=== PATIENT | female | born 1965 | race Caucasian/White ===

== ENCOUNTER 2016-12-25 13:35 | Observation (INO) | payer BC, OTHER ==
[~2016-12-25] VITALS: Ht 154.9 cm; Wt 77.6 kg
[~2016-12-25 13:35] MED LIST: CALC-23 PO; FISH OI1 PO; MULTTAB58 PO; SELE1TAB PO; VITEX PO; [UNRECOGNIZED DRUG - CODE] PO
[2016-12-25] MEDS ORDERED: SODIUM CHLORIDE 0.9% 1000ML 1,000 ML IV STA (14:09)
[2016-12-25] MEDS ORDERED: NITROGLYCERIN 0.4 MG SL PER TAB CHARGE SL PRN ×2 (14:15→16:00)
[2016-12-25 14:18] LABS: BASO % 1.4 %; BASO ABS # 0.08 K/uL (0-0.2); COMPLETE YES; EOS % 1.4 %; HEMATOCRIT 37.8 % (37-47); IG% 0.4 %; LYMPH % 38.8 %; LYMPH ABS # 2.21 K/uL (1.2-3.4); MEAN CELL VOLUME 88.5 fL (80-100); MEAN CORPUSCULAR HEMOGLOBIN 30.9 pg (25-34); MEAN CORPUSCULAR HGB CONC 34.9 g/dl (32-36); MEAN PLATELET VOLUME 10.3 fL (7.4-10.4); MONO % 8.4 %; NEUT % 49.6 %; PLATELET COUNT 262 K/uL (130-400); RED BLOOD COUNT 4.27 M/uL (4.2-5.4); WHITE BLOOD COUNT 5.69 K/uL (4.8-10.8)
[2016-12-25 14:27] LABS: ALT/SGPT 63 U/L (12-78); AST/SGOT 28 U/L (15-37); BLOOD UREA NITROGEN 12 mg/dl (7-18); BUN/CREATININE RATIO 14.5 (10-20); CALCIUM 9.2 mg/dl (8.5-10.1); CARBON DIOXIDE 27 mmol/L (21-32); CHLORIDE 104 mmol/L (98-107); CREATININE 0.84 mg/dl (0.60-1.20); GLUCOSE 102 mg/dl (70-99); POTASSIUM 3.7 mmol/L (3.5-5.1); SODIUM 142 mmol/L (136-145)
[2016-12-25 14:32] LABS: ALKALINE PHOSPHATASE 61 U/L (45-117)
[2016-12-25] MEDS ORDERED: VITA1TAB4 PO (14:34)
--- NOTE | 2016-12-25 14:48 | DIAGNOSTIC IMAGING REPORT ---
SINGLE VIEW CHEST CLINICAL HISTORY: Atypical chest pain. FINDINGS: An AP, portable, upright chest radiograph is obtained. No prior studies are available for comparison at the time of dictation. The examination is degraded by portable technique and patient rotation. The cardiomediastinal silhouette is unremarkable. The lungs and pleural spaces are clear. No pneumothorax is seen. The bony thorax is grossly intact. Degenerative change is noted throughout the thoracic spine. IMPRESSION: No active disease in the chest. Electronically signed by: Jesus Rush M.D. 12/25/2016 2:46 PM Dictated Date/Time: 12/25/2016 2:46 PM
[2016-12-25] MEDS ORDERED: ASPIRIN 324 MG CHEW PO STA (15:46)
[2016-12-25] MEDS ORDERED: MoRPHine SULFATE 4 MG/ML 1 ML CARP\\VIAL IV PRN (16:00)
[2016-12-25] MEDS ORDERED: MAGNESIUM HYDROXIDE SUSP 30 ML UDC PO PRN (16:00)
[2016-12-25] MEDS ORDERED: ALUMINUM/MAGNESIUM/SIMETH (MAALOX MAX) 30 ML UDC PO PRN (16:00)
[2016-12-25] MEDS ORDERED: MoRPHine SULFATE 2 MG/ML CARP IV PRN (16:00)
[2016-12-25] MEDS ORDERED: LORAZEPAM 0.5 MG TAB PO PRN (16:00)
[2016-12-25] MEDS ORDERED: ONDANSETRON INJ 2 MG/ML 2 ML VIAL IV PRN (16:00)
[2016-12-25] MEDS ORDERED: LORAZEPAM 2 MG/ML 1 ML VIAL IV PRN ×2 (16:00)
[2016-12-25] MEDS ORDERED: OXYCODONE HCL IR 5 MG TAB (IMMEDIATE RELEASE) PO PRN (16:00)
[2016-12-25 16:03] VITALS: O2SAT 98; Ht 154.9 cm; Wt 77.6 kg
[2016-12-25] MEDS ORDERED: IV FLUIDS COMPLETED PRN (17:00)
[2016-12-25 17:42] VITALS: BP 132/83; PULSE 68; TEMP 36.7; O2SAT 96
[2016-12-25] MEDS ORDERED: LORAZEPAM INJ 1 MG in SYRINGE 0.5 ML IV PRN (18:00)
[2016-12-25] MEDS ORDERED: LORAZEPAM INJ 0.5 MG in SYRINGE 0.75 ML IV PRN (18:00)
--- NOTE | 2016-12-25 18:20 | HISTORY & PHYSICAL EXAMINATION ---
DATE OF ADMISSION: 12/25/2016 CHIEF COMPLAINT: Chest pain. ADMITTING DIAGNOSIS: Chest pain. HISTORY OF PRESENT ILLNESS: Ms. Falcon is a 51-year-old female who does not typically seek medical care. The patient states that she in the last few years have occasionally experienced what she describes as a flop in her chest. This is not typically associated with any activity or even at rest. Overnight, the patient said she felt this symptom more specifically; it was concerning to her. She says at that time she can feel her heart beat and she felt that her heart beat had paused or stopped significantly at 2 occasions. Subsequent to those symptoms, she then developed chest pressure which had a sharp component centrally below her sternum. She said when the chest pressure was at its worst she experienced shortness of breath, mild nausea and some dizziness. The patient when she presented said her discomfort was at a 7 in the Emergency Room and has receded to approximately 3. This was after aspirin and nitroglycerin. The patient is currently resting comfortably. She appears to be in no acute distress to me. She is in sinus rhythm on the heart monitor and despite having 3/10 discomfort appears to be completely without remark. PAST MEDICAL AND SURGICAL HISTORY: Fairly unremarkable. She had a D\T\C with evacuation in her youth. 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 MEDICATIONS: Multivite once a day, fish oil once a day, and vitamin E daily. CARDIAC RISK FACTORS: Her father had heart disease in his 80s. She is known to have elevated cholesterol. She currently is in a perimenopausal period. She has never smoked; however. She is morbidly obese with a BMI of 33. REVIEW OF SYSTEMS: Ten systems were reviewed and are negative with the exception of variable menstrual periods. The patient states that occasionally she wakes up at night feeling flushed or warm. At that point in time, her heart rate may be slightly faster for her. PHYSICAL EXAMINATION: GENERAL: This is a pleasant female. She looks some slightly older than her stated age. VITAL SIGNS: Her temperature is 36.8, her heart rate 73, respiration rate 16, BP 115/73, O2 sat 98. HEENT: PERRL, EOMI. I did not do a funduscopic exam to see these telangiectasias. Her oropharynx is clear. NECK: Without lymphadenopathy. Trachea is midline. HEART: Regular. There are no murmurs, clicks, rubs or gallops. LUNGS: Clear without wheezes or crackles. Good air movement. She has no spinal tenderness or CV angle tenderness. ABDOMEN: Obese, normoactive bowel sounds, soft, nontender, no bruits. I cannot assess for organomegaly due to her body habitus. EXTREMITIES: Without cyanosis, clubbing or edema. NEUROLOGICALLY: She is awake, alert and appropriate. Cranial nerves II-XII are intact. Equal symmetrical strength and sensation. SKIN: Without lesions, growths, bruises or bleeding. LABORATORY DATA: Never smoked, never drank. She is currently . Her and her daughter are with her. FAMILY HISTORY: Positive for diabetes and hypertension in her mother and as mentioned, heart disease and stents in her father. LABORATORY DATA: She has completely normal labs. A CBC of 5, H\T\H 13 and 37, platelet count of 262, BUN and creatinine is 12 and 0.8. Her cardiac enzymes are unremarkable. The only thing abnormal is lipase, it is 612. IMAGING DATA: Chest x-ray is without remark. Her EKG shows normal sinus rhythm without any acute ST or T-wave changes. There is some inverted T waves in V1 and V2, but these are congruent with the vector of force being down those leads. ASSESSMENT: A 51-year-old female with palpitations and chest pain. Initial workup unremarkable at the present time. PLAN: The patient will be observed in the telemetry unit. She will be given aspirin 325 now and once a day. She will have p.r.n. nitrates for pain. Additional pain control could be with morphine. We will pursue an EKG in the morning. If her enzymes and EKG are unremarkable, we may pursue a treadmill echocardiographic stress testing which she is in agreement with. In case her palpitations are something regarding arrhythmia, this will be monitored overnight. The Emergency Room did not check a TSH. This will be added, although she has not complaint of any clinical signs or symptoms of hyperthyroidism. Enoxaparin will be used for DVT prevention. The patient is a full code.
[2016-12-25 18:46] LABS: PROTHROMBIN TIME (PATIENT) 10.5 SECONDS (9.0-12.0)
[2016-12-25 20:00] VITALS: BP 133/82; PULSE 65; TEMP 36.5; O2SAT 97
[2016-12-25] MEDS ORDERED: ENOXAPARIN 40 MG/0.4 ML SYR SC SCH (21:00)
--- NOTE | 2016-12-25 21:05 | EMERGENCY ROOM VISIT NOTE ---
ED Visit Note First contact with patient: 13:45 Chief Complaint: Chest pain. History of Present Illness: Ms. Falcon is a 51 year-old white female complaining of chest tightness. Historically patient reports she has no history of coronary artery disease but does report she has a history of dyslipidemia, obesity, satiety. She does report her father had a history of coronary artery disease that required triple stent placement when he was 80 years old, but there is no other family monitor with heart disease. Patient reports approximately 6.5 hours ago she was lying in bed on her stomach. She reports she had a 3-4 second interval of feeling like her heart was racing and had 2 episodes of sensations like her heart had stopped for a second. She rolled over onto her back and reports an acute onset of severe chest pain. At that time she described her pain as if something was sitting on her chest. She rates this discomfort 7/10. There was no radiation of the pain. She did feel slightly short of breath at the time. She did treat her symptoms with 4 baby aspirin and reports mild right relief of this discomfort. Since that time she reports her pain has been constant but has waxed and waned in intensity but has never resolved. Currently she describes her pain as a tightness sensation across the sternum. She rates her discomfort 3/10. Her pain is still nonradiating. She has not identified any additional aggravating or alleviating factors related to the pain. She has not taken any additional medication for pain prior to arrival at the hospital. When I questioned her about shortness of breath she reports she does not know if she feels more or less short of breath. Patient denies fevers, chills, sweats, skin eruptions, skin color changes, upper respiratory tract symptoms, radiation of her discomfort into the back, next and arms, wheezing, cough shortness of breath, orthopnea, dependent edema, previous clots, claudication, cramping, recent surgery/inactivity/extended travel, abdominal pain, nausea, vomiting, diarrhea, constipation, rectal bleeding, black/tarry stools, urinary symptoms, back/flank pain. Review of Systems: As noted above in history of present illness. All body systems were reviewed and found to be negative as noted above. Past Medical History: As previously noted, heavy vaginal bleeding, telangiectasias of the eyes. Current Medications: Multivitamins. Allergies to Medications: Acetaminophen, propoxyphene, thyroid hormones. Social History: Patient feels safe in her home environment; she denies tobacco and alcohol use. Physical Examination: Vital Signs: Date Time Temp Pulse Resp B/P Pulse Ox O2 Delivery O2 Flow Rate FiO2 12/25/16 15:36 82 12 98 12/25/16 15:31 115/63 12/25/16 15:30 73 15 98 12/25/16 15:01 100/67 12/25/16 15:00 74 10 98 12/25/16 14:22 78 15 155/88 98 Room Air 12/25/16 13:47 75 12/25/16 13:41 36.8 78 16 171/96 100 Room Air GENERAL: 51-year-old female in mild to moderate distress due to pain, nontoxic- appearing, afebrile and hemodynamically stable. NEUROLOGICAL: Awake, alert and oriented to person, place and time. Answering questions appropriately and following commands. Normal gait. Good hand eye coordination. SKIN: Warm, dry and pink. No soft tissue eruptions or trauma noted. HEENT: Atraumatic and normocephalic. PERRLA. Sclera white and conjunctiva pink. Oral cavity moist and pink. Pharynx is nonerythematous or edematous. Speech normal. No lymphadenopathy. Trachea midline. No jugular venous distention. No carotid bruits. BACK: No tenderness over the bony spine. No CVA tenderness. THORAX: Lungs sounds are clear to auscultation and equal bilaterally with symmetrical chest wall. No wheezing, rales or rhonchi. No crepitus, tenderness , subcutaneous air or deformities noted. HEART: Regular rate and rhythm. No gallops, rubs or murmurs are appreciated. No lifts, heaves or thrills. PMI is not displaced. ABDOMEN: Flat, soft and nontender. Positive bowel sounds in all quadrants. No guarding, rigidity or organomegaly. EXTREMITIES: Moves all extremities well on command and with purpose. All distal neurovascular statuses are intact and equal bilaterally. Trace dependent edema. No calf tenderness/cords. ED Course: Patient is assessed as noted above. Laboratory Testing: Test 12/25/16 13:50 12/25/16 14:16 Range/Units White Blood Count 5.69 4.8-10.8 K/uL Red Blood Count 4.27 4.2-5.4 M/uL Hemoglobin 13.2 12.0-16.0 g/dL Hematocrit 37.8 37-47 % Mean Corpuscular Volume 88.5 80-100 fL Mean Corpuscular Hemoglobin 30.9 25-34 pg Mean Corpuscular Hemoglobin Concent 34.9 32-36 g/dl Platelet Count 262 130-400 K/uL Mean Platelet Volume 10.3 7.4-10.4 fL Neutrophils (%) (Auto) 49.6 % Lymphocytes (%) (Auto) 38.8 % Monocytes (%) (Auto) 8.4 % Eosinophils (%) (Auto) 1.4 % Basophils (%) (Auto) 1.4 % Neutrophils # (Auto) 2.82 1.4-6.5 K/uL Lymphocytes # (Auto) 2.21 1.2-3.4 K/uL Monocytes # (Auto) 0.48 0.11-0.59 K/uL Eosinophils # (Auto) 0.08 0-0.5 K/uL Basophils # (Auto) 0.08 0-0.2 K/uL RDW Standard Deviation 42.4 36.4-46.3 fL RDW Coefficient of Variation 13.1 11.5-14.5 % Immature Granulocyte % (Auto) 0.4 % Immature Granulocyte # (Auto) 0.02 0.00-0.02 K/uL Sodium Level 142 136-145 mmol/L Potassium Level 3.7 3.5-5.1 mmol/L Chloride Level 104 98-107 mmol/L Carbon Dioxide Level 27 21-32 mmol/L Anion Gap 11.0 3-11 mmol/L Blood Urea Nitrogen 12 7-18 mg/dl Creatinine 0.84 0.60-1.20 mg/dl Est Creatinine Clear Calc Drug Dose 74.1 ml/min Estimated GFR () 92.0 Estimated GFR (Non- 79.3 BUN/Creatinine Ratio 14.5 10-20 Random Glucose 102 70-99 mg/dl Calcium Level 9.2 8.5-10.1 mg/dl Total Bilirubin 0.3 0.2-1 mg/dl Direct Bilirubin < 0.1 0-0.2 mg/dl Aspartate Amino Transf (AST/SGOT) 28 15-37 U/L Alanine Aminotransferase (ALT/SGPT) 63 12-78 U/L Alkaline Phosphatase 61 45-117 U/L Total Creatine Kinase 57 26-192 U/L Creatine Kinase MB < 0.5 0.5-3.6 ng/ml Creatine Kinase MB Ratio 0-3.0 Total Protein 7.4 6.4-8.2 gm/dl Albumin 3.8 3.4-5.0 gm/dl Lipase 612 73-393 U/L Hepatitis C Antibody Screen NEG NEG Bedside Troponin I 0.000 0-0.045 ng/ml Chest X-Rays: Were read by myself and the radiologist shows no acute infiltrates , effusions or pneumothorax. Normal heart silhouette and bony anatomy. Radiologist notes degenerative changes to the thoracic spine. EKG: Was read by myself and reviewed with Dr. Charles; shows normal sinus rhythm with a ventricular rate of 68 bpm. Normal axis, intervals and complexes. Nonspecific ST abnormalities. This was compared to a previous from November 2009 and shows shortening of the QT segment and previous inverted T waves in the anterior leads are now nonspecific. Patient was hydrated with normal saline and patient received a sublingual nitroglycerin trial of 3 tablets without relief of her discomfort. Patient was reassessed multiple times during her stay in the emergency department. Patient's case was reviewed with Dr. Charles; we agreed on diagnostic approach, treatment, disposition and plan. Patient's case was consulted with case management and [facility]. Patient was educated about tondunia's findings. Clinical Impression: Acute chest pain. Decision-Making: Initially my differential diagnosis I considered acute coronary syndrome, thoracic aneurysm, pneumothorax, pneumonia, pulmonary embolism, musculoskeletal disorder and other causes. Disposition and Plan: Patient be [facility] in the [facility]; please see their notes and orders for final disposition and plan.
[2016-12-25] MEDS ORDERED: PROMETHAZINE HCL INJ 25 MG in SODIUM CHLORIDE 0.9% 50ML 50 ML IV STA (21:10)
[2016-12-25 21:17] VITALS: BP 129/84; PULSE 67; TEMP 36.5; O2SAT 95
[2016-12-25 22:46] VITALS: BP 154/89; PULSE 68; TEMP 36.4; O2SAT 100
[2016-12-26 03:49] VITALS: BP 97/67; PULSE 63; TEMP 36.5; O2SAT 98
[2016-12-26 06:15] LABS: HEMATOCRIT 36.5 % (37-47); MEAN CELL VOLUME 91.3 fL (80-100); MEAN PLATELET VOLUME 10.5 fL (7.4-10.4); PLATELET COUNT 233 K/uL (130-400); WHITE BLOOD COUNT 4.93 K/uL (4.8-10.8)
[2016-12-26 06:48] LABS: BLOOD UREA NITROGEN 12 mg/dl (7-18); BUN/CREATININE RATIO 15.4 (10-20); CALCIUM 8.6 mg/dl (8.5-10.1); CARBON DIOXIDE 28 mmol/L (21-32); CHLORIDE 106 mmol/L (98-107); CHOLESTEROL 252 mg/dl (0-200); CREATININE 0.78 mg/dl (0.60-1.20); GLUCOSE 101 mg/dl (70-99); SODIUM 143 mmol/L (136-145)
[2016-12-26 06:53] LABS: CHOLESTEROL/HDL RATIO 5.3; HDL CHOLESTEROL 48 mg/dl; LDL CHOLESTEROL CALCULATED 145 mg/dl; TRIGLYCERIDES 293 mg/dl (0-150); VERY LOW DENSITY LIPOPROT CALC 59 mg/dl
[2016-12-26 08:00] VITALS: BP 106/69; PULSE 65; TEMP 36.5; O2SAT 97
[2016-12-26] MEDS ORDERED: ASPIRIN 325 MG ECTAB PO SCH (09:00)
[2016-12-26] MEDS ORDERED: PERFLUTREN LIPID MICROSPHERE (DEFINITY) IV ONE (09:38)
[2016-12-26] MEDS ORDERED: ASPEC81 PO (09:54)
[2016-12-26] MEDS ORDERED: SIMV20TA5 PO (09:54)
[2016-12-26] MEDS ORDERED: NTRSLP4 SL (09:54)
[2016-12-26 11:11] VITALS: BP 108/71; PULSE 70; TEMP 36.5; O2SAT 96
[2016-12-26 15:23] VITALS: BP_SYST 89; BP_SYST 95; BP_DIAS 50; BP_DIAS 61; PULSE 71; TEMP 36.8; O2SAT 96
--- NOTE | 2016-12-26 16:52 | Discharge Instructions ---
Discharge Instructions Date of Service Dec 26, 2016. Admission Reason for Admission: Chest Pain Discharge Discharge Diagnosis / Problem: chest pain, dyslipidemia Discharge Goals Goal(s): Decrease discomfort, Improve function, Increase independence, Improve disease control, Improve nutritional status, Learn about illness, Diagnostic testing, Therapeutic intervention, Prevent Disease Progression, Specific goals Activity Recommendations Activity Limitations: resume your previous activity Exercise/Sports Limitations: none May Resume Sexual Activity: when tolerated . Instructions / Follow-Up Instructions / Follow-Up you had palpitations and chest pain. your testing of cardiac enzymes and EKG are unremarkable, you had treadmill echocardiographic stress testing done you can go home if the stress test is negative for acute coronary syndrome as I told you, you need to keep appointment with your primary care physician as we set up for you. you need to take medicine, such as Aspirin, Zocor as I prescribe to you, - you need to follow up with your primary care physician - take medication as instructed, never overdose or any misuse, or take with alcohol, because misuse of medicine may cause organ damage or , call your primary care physician if have questions of medicaitons. - call your primary care physician OR go to local emergency room if has any fever/chill, chest pain, shortness of breathing, nausea/vomiting/abdominal pain , facial droop/slurry speech/local weakness, or if has any questions. - fall precaution - diet as instructed - you should understand that it is important to follow up the above instruction , and "not following the above instruction" may cause delayed or missed care of your medical conditions which may cause permanent organ damage and even . Current Hospital Diet Patient's current hospital diet: Regular Diet Discharge Diet Recommended Diet: Low Fat Diet Procedures Procedures Performed: stress test done Pending Studies Studies pending at discharge: no Laboratory Results Lipid Panel Test 12/26/16 06:01 Range/Units Triglycerides Level 293 H 0-150 mg/dl Cholesterol Level 252 H 0-200 mg/dl HDL Cholesterol 48 mg/dl Cholesterol/HDL Ratio 5.3 LDL Cholesterol, Calculated 145 mg/dl Medical Emergencies . Who to Call and When: Medical Emergencies: If at any time you feel your situation is an emergency, please call 911 immediately. . Non-Emergent Contact Non-Emergency issues call your: Primary Care Provider . . "Provider Documentation" section prepared by Khris De Leon. VTE Core Measure Inpt VTE Proph given/why not?: Unfractionated heparin SQ
--- NOTE | 2016-12-26 17:00 | Discharge Summary ---
Discharge Summary Date of Service Dec 26, 2016. Discharge Summary Admission Date: Dec 25, 2016 at 15:54 Discharge Date: Dec 26, 2016 Discharge Disposition: Home Principal Diagnosis: chest pain Problems/Secondary Diagnoses: dyslipidemia Procedures: stress test Consultations: no Medication Reconciliation New Medications: Aspirin (Aspirin EC Low Dose) 81 Mg Ectab 81 MG PO DAILY for 60 Days Simvastatin (Zocor) 20 Mg Tab 1 TAB PO HS for 30 Days, #30 TAB 1 Refill Nitroglycerin (Nitrostat) 0.4 Mg/1 Tab Subl 0.4 MG SL UD PRN for Chest Pain for 30 Days, #50 Continued Medications: () 1 CAPSULE PO DAILY Multiple Vitamin (Multivitamin) 1 Tab Tab 1 TABLET PO DAILY, TAB Vitamin E (Vitamin E) Unknown Strength Tab 1 TAB PO DAILY Discharge Exam doing well, reported has minimal chest pain, 0.5/10, dull pain, no other c/o, no sob, no dizziness, no heart burn Review of Systems: Constitutional: No chills, No fatigue, No fever, No problem reported, No sweats, No weakness, No weight loss Eyes: No diplopia, No discharge, No eye pain, No problem reported, No redness, No worsening of vision ENT: No dental problems, No hearing loss, No nasal symptoms, No problem reported, No sore throat, No tinnitus, No trouble swallowing, No unusual epistaxis Respiratory: No cough, No dyspnea at rest, No dyspnea on exertion, No hemoptysis, No problem reported, No shortness of breath, No sputum, No wheezing Cardiovascular: No PND, No chest pain, No claudication, No edema, No orthopnea, No palpitations, No problem reported Abdomen: No GI bleeding, No constipation, No diarrhea, No nausea, No pain, No problem reported, No vomiting Musculoskeletal: No calf pain, No joint pain, No muscle pain, No problem reported, No swelling Genitourinary - Female: No dysmenorrhea, No dysuria, No hematuria, No menorrhagia, No metrorrhagia, No , No problem reported, No rash, No urinary frequency, No urinary incontinence, No urinary retention, No urinary urgency, No vaginal bleeding, No vaginal discharge, No vaginal itching, No vulvodynia Neurologic: No balance problems, No memory loss, No numbness/tingling, No paralysis, No problem reported, No vertigo, No weakness Psychiatric: No anhedonism, No anxiety, No depression symptoms, No insomnia , No problem reported, No substance abuse Endocrine: No excessive thirst, No excessive urination, No fatigue, No problem reported Hematologic / Lymphatic: No abnormal bleeding/bruising, No clotting problems , No night sweats, No problem reported, No swollen lymph nodes Integumentary: No bleeding, No color change, No itch, No new/changing skin lesions, No problem reported, No rash Physical Exam: General Appearance: WD/WN, no apparent distress Eyes: normal inspection, PERRL ENT: normal ENT inspection, hearing grossly normal Neck: supple, no adenopathy Respiratory/Chest: chest non-tender, lungs clear, normal breath sounds Cardiovascular: regular rate, rhythm, no edema, no gallop, no JVD Abdomen / GI: normal bowel sounds, non tender, soft, no organomegaly, no pulsatile mass Extremities: normal inspection, no calf tenderness, normal capillary refill 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 Initial workup unremarkable cardiac enzymes and EKG are unremarkable, had a treadmill echocardiographic stress testing done, no report yet. In case her palpitations are something regarding arrhythmia, has been monitored overnight , and TSH checked, all normal FLP found mild dyslipidemia, I counselling life style modification, and ordered Zocor pt is current has no insurance, but will have insurance very soon per her and fam, , I told her to follow up with pcp about all of her conditions. they all agreed. Enoxaparin will be used for DVT prevention. The patient is a full code. Instructions / Follow-Up you had palpitations and chest pain. your testing of cardiac enzymes and EKG are unremarkable, you had treadmill echocardiographic stress testing done you can go home if the stress test is negative for acute coronary syndrome as I told you, you need to keep appointment with your primary care physician as we set up for you. you need to take medicine, such as Aspirin, Zocor as I prescribe to you, - you need to follow up with your primary care physician - take medication as instructed, never overdose or any misuse, or take with alcohol, because misuse of medicine may cause organ damage or , call your primary care physician if have questions of medicaitons. - call your primary care physician OR go to local emergency room if has any fever/chill, chest pain, shortness of breathing, nausea/vomiting/abdominal pain , facial droop/slurry speech/local weakness, or if has any questions. - fall precaution - diet as instructed - you should understand that it is important to follow up the above instruction , and "not following the above instruction" may cause delayed or missed care of your medical conditions which may cause permanent organ damage and even . Total Time Spent: Greater than 30 minutes This includes examination of the patient, discharge planning, medication reconciliation, and communication with other providers. Discharge Instructions Please refer to the electronic Patient Visit Report (Discharge Instructions) for additional information. Additional Copies To Jing Jane MD
[2016-12-26 18:49] VITALS: BP 95/50; PULSE 71; TEMP 36.8; O2SAT 96
--- NOTE | 2016-12-26 19:06 | EXERCISE STRESS ECHO ---
*NOTICE TO RECEIVING LIBERTARIAN AGENCY This information is strictly Confidential and protected under [place] law. [place] law prohibits you from making any further disclosure of this information unless further disclosure is expressly permitted by the written consent of the person to whom it pertains or is authorized by law. A general authorization for the release of medical or other information is not sufficient for this purpose. Hospital accepts no responsibility if the information is made available to any other person, INCLUDING THE PATIENT. Interpretation Summary * Name: KYLE LEAHY Study Date: 12/26/2016 07:51 AM BP: 98/62 mmHg * Patient Location: [facility] HR: 100 * : 1965 (M/d/yyyy) Gender: Female Height: 61 in * Age: 51 yrs Ethnicity: CA Weight: 176 lb * Ordering Physician: Don Erazo * Performed By: Lara Espinosa RDCS * * Reason For Study: Chest pain * BSA: 1.8 m2 * -- Conclusions -- * Technically Limited study * 1. Negative exercise stress echo for ischemia at 97% MPHR. * 2. Negative stress ECG for ischemia. * 3. Below average functional capacity. Exercised for 4:08 mins, achieving 5.9 METS. Intermediate Risk Gilmore Treadmill Score. * 4. Normal resting LV size and function. LVEF 55-60%. No resting regional wall motion abnormalities. * 5. Normal RV size and function. * 6. No significant valvular pathology. * 7. No prior studies for comparison. Procedure Details * ECHOEX, CPT #94616 * A contrast injection of Definity was performed to improve assessment of LV function. * Contrast was injected into an intravenous site in the left arm. * One vial of Definity ultrasound contrast was diluted in normal saline to a total volume of 10 ml. A total of '4' ml of solution was administered during imaging. * Lot # [id number] of Definity utilized for procedure. * Expiration date NOV 02. * The attending nurse who injected the contrast agent was Puja Sheth RN. Left Ventricle * The left ventricle is grossly normal size. * There is normal left ventricular wall thickness. * Ejection Fraction = 55-60%. * No regional wall motion abnormalities noted. Right Ventricle * The right ventricle is grossly normal size. * The right ventricular systolic function is normal as assessed by tricuspid annular plane systolic excursion (TAPSE) (normal >1.5 cm). Atria * The left atrial size is normal. * Right atrial size is normal. * No ASD detected; PFO is not assessed. Mitral Valve * The mitral valve is grossly normal. * Mitral stenosis is absent. * Significant mitral regurgitation is absent. Tricuspid Valve * The tricuspid valve is not well visualized. * Significant tricuspid regurgitation is absent. Aortic Valve * The aortic valve opens well. * No hemodynamically significant valvular aortic stenosis. * There is no significant aortic regurgitation. Pulmonic Valve * The pulmonary valve is inadequately visualized, but the Doppler data is adequate for interpretation. * Trace pulmonic valvular regurgitation. Great Vessels * The aortic root and proximal ascending aorta are normal sized. Pericardium * There is no pericardial effusion. Stress Parameters * Normal baseline electrocardiogram. * Stress ECG: No ST changes. No arrhythmias. * No arrhythmia were noted with stress. * The stress portion of this study was personally supervised by the undersigned interpreting physician. * Rest heart rate was '100' BPM. * Rest blood pressure was '98/62' * Maximum heart rate achieved was 162 bpm. * Maximum heart rate was 97 % of maximum age-predicted heart rate. * Maximum blood pressure was '132/76' * Total exercise time was '4:08' * Maximum exercise MET level achieved was '5.90' METS * Maximum treadmill speed was '2.50' miles per hour. * Maximum treadmill elevation was '12.00'% grade. * Exercise was terminated due to 'achieving target heart rate' Left Ventricular Findings with Stress * The study was technically adequate. MMode 2D Measurements and Calculations IVSd 0.85 cm LVIDd 4.1 cm LVIDs 2.9 cm LVPWd 0.98 cm IVS/LVPW 0.86 FS 29.0 % EDV(Teich) 75.2 ml ESV(Teich) 32.9 ml EF(Teich) 56.2 % EDV(cubed) 70.0 ml ESV(cubed) 25.1 ml EF(cubed) 64.2 % LV mass(C)d 118.2 grams LV mass(C)dI 66.0 grams/m\S\2 SV(Teich) 42.2 ml SI(Teich) 23.6 ml/m\S\2 SV(cubed) 45.0 ml SI(cubed) 25.1 ml/m\S\2 Ao root diam 2.8 cm Ao root area 6.1 cm\S\2 asc Aorta Diam 2.2 cm LVOT diam 1.8 cm LVOT area 2.5 cm\S\2 LVAd ap4 17.3 cm\S\2 LVLd ap4 5.7 cm EDV(MOD-sp4) 43.3 ml EDV(sp4-el) 44.4 ml LVAs ap4 10.5 cm\S\2 LVLs ap4 4.6 cm ESV(MOD-sp4) 19.0 ml ESV(sp4-el) 20.0 ml EF(MOD-sp4) 56.1 % EF(sp4-el) 55.0 % LVAd ap2 24.7 cm\S\2 LVLd ap2 6.8 cm EDV(MOD-sp2) 75.2 ml EDV(sp2-el) 76.2 ml LVAs ap2 14.2 cm\S\2 LVLs ap2 5.5 cm ESV(MOD-sp2) 30.1 ml ESV(sp2-el) 31.1 ml EF(MOD-sp2) 59.9 % EF(sp2-el) 59.2 % LVLd %diff 15.8 % EDV(MOD-bp) 61.9 ml LVLs %diff 15.5 % ESV(MOD-bp) 26.1 ml EF(MOD-bp) 57.8 % SV(MOD-sp4) 24.3 ml SI(MOD-sp4) 13.6 ml/m\S\2 SV(MOD-sp2) 45.1 ml SI(MOD-sp2) 25.2 ml/m\S\2 SV(MOD-bp) 35.8 ml SI(MOD-bp) 20.0 ml/m\S\2 SV(sp4-el) 24.4 ml SI(sp4-el) 13.6 ml/m\S\2 SV(sp2-el) 45.2 ml SI(sp2-el) 25.2 ml/m\S\2 Doppler Measurements and Calculations MV E max andreina 120.3 cm/sec MV A max andreina 97.0 cm/sec MV E/A 1.2 MV dec time 0.24 sec Ao V2 max 144.4 cm/sec Ao max PG 8.3 mmHg Ao max PG (full) 5.4 mmHg RUDI(V,A) 1.5 cm\S\2 RUDI(V,D) 1.5 cm\S\2 LV V1 max PG 2.9 mmHg LV V1 max 85.9 cm/sec PA V2 max 68.8 cm/sec PA max PG 1.9 mmHg PA acc slope 240.4 cm/sec\S\2 PA acc time 0.19 sec PI max andreina 95.0 cm/sec PI max PG 3.6 mmHg PI dec slope 92.9 cm/sec\S\2 PI P1/2t 299.6 msec TR max andreina 223.7 cm/sec PA pr(Accel) -8.15 mmHg
== END 2016-12-26 19:40 | disposition home or self-care (01) ==
LOC: ENRESERVDT → ENRESERVTM → C.EDB 13:36 → C.MED 15:54
PROVIDERS: ADMIT Internal Medicine; ATTEND Hospitalist
DX: R07.9 Chest pain, unspecified (principal); E78.5 Hyperlipidemia, unspecified; E66.01 Morbid (severe) obesity due to excess calories; Z68.33 Body mass index [BMI] 33.0-33.9, adult; Z82.49 Family history of ischemic heart disease and other diseases of the circulatory system; Z83.3 Family history of diabetes mellitus

== ENCOUNTER → 2017-11-07 | Outpatient (CLI) | payer BC ==
[~2017-11-07] MED LIST changes: +ASPEC81 PO; -CALC-23 PO; +NTRSLP4 SL; -SELE1TAB PO; +SIMV20TA5 PO; +VITA1TAB4 PO; -VITEX PO; -[UNRECOGNIZED DRUG - CODE] PO
== END | disposition home or self-care (01) ==
LOC: C.LABPBG 07:34
PROVIDERS: ATTEND Physician Assistant
DX: R30.0 Dysuria (principal)

== ENCOUNTER → 2017-12-14 | Outpatient (CLI) | payer BC ==
--- NOTE | 2017-12-14 12:15 | DIAGNOSTIC IMAGING REPORT ---
L HAND MIN 3 VIEWS ROUTINE CLINICAL HISTORY: M25.549 pain COMPARISON: None. DISCUSSION: The bones and joint spaces appear intact. There is no evidence of fracture, dislocation or bony disease. There is no evidence for soft tissue swelling. IMPRESSION: Negative study. The above report was generated using voice recognition software. It may contain grammatical, syntax or spelling errors. Electronically signed by: Robin Bingham M.D. 12/14/2017 12:14 PM Dictated Date/Time: 12/14/2017 12:13 PM
--- NOTE | 2017-12-14 12:23 | DIAGNOSTIC IMAGING REPORT ---
R HAND MIN 3 VIEWS ROUTINE CLINICAL HISTORY: M25.549 pain COMPARISON: None. DISCUSSION: The bones and joint spaces appear intact. There is no evidence of fracture, dislocation or bony disease. There is no evidence for soft tissue swelling. IMPRESSION: Negative study. The above report was generated using voice recognition software. It may contain grammatical, syntax or spelling errors. Electronically signed by: Robin Bingham M.D. 12/14/2017 12:22 PM Dictated Date/Time: 12/14/2017 12:22 PM
== END | disposition home or self-care (01) ==
LOC: C.RAD1850 11:56
PROVIDERS: ATTEND Family Medicine
DX: M25.549 Pain in joints of unspecified hand (principal)

== ENCOUNTER → 2018-01-08 | Outpatient (CLI) | payer BC | END | disposition home or self-care (01) | LOC: C.PAPS 18:22 | PROVIDERS: ATTEND Obstetrics & Gynecology | DX: Z01.419 Encounter for gynecological examination (general) (routine) without abnormal findings (principal) ==

== ENCOUNTER → 2018-01-11 | Outpatient (CLI) | payer BC ==
[2018-01-11 16:55] LABS: BLOOD UREA NITROGEN 12 mg/dl (7-18); CALCIUM 9.4 mg/dl (8.5-10.1); CARBON DIOXIDE 29 mmol/L (21-32); CHOLESTEROL 297 mg/dl (0-200); CREATININE 0.81 mg/dl (0.60-1.20); GLUCOSE 98 mg/dl (70-99); SODIUM 136 mmol/L (136-145)
[2018-01-11 17:05] LABS: LDL CHOLESTEROL CALCULATED 208 mg/dl
[2018-01-12 06:20] LABS: HEMOGLOBIN A1C 6.1 % (4.5-5.6)
== END | disposition home or self-care (01) ==
LOC: C.LABPBG 11:14
PROVIDERS: ATTEND Family Medicine
DX: E28.2 Polycystic ovarian syndrome (principal)

== ENCOUNTER → 2018-01-26 | Outpatient (CLI) | payer BC ==
[~2018-01-26] MED LIST changes: -ASPEC81 PO; +ASPI-320 PO
--- NOTE | 2018-01-29 07:46 | MAMMOGRAPHY REPORT ---
BILATERAL DIGITAL SCREENING MAMMOGRAM TOMOSYNTHESIS WITH CAD: 01/26/2018 CLINICAL HISTORY: Routine screening. Patient has no complaints. TECHNIQUE: Breast tomosynthesis in addition to standard 2D mammography was performed. Current study was also evaluated with a Computer Aided Detection (CAD) system. COMPARISON: Comparison is made to exams dated: 12/31/2014 mammogram - [facility], mammogram, 01/25/2010 mammogram, and 01/01/2009 mammogram - [facility]-. BREAST COMPOSITION: There are scattered areas of fibroglandular density in both breasts. FINDINGS: No suspicious masses, calcifications, or areas of architectural distortion are noted in ei ther breast. There has been no significant interval change compared to prior exams. Scattered bilater al benign-appearing calcifications are not significantly changed. IMPRESSION: ACR BI-RADS CATEGORY 2: BENIGN There is no mammographic evidence of malignancy. A 1 year screening mammogram is recommended. The pa tient will receive written notification of the results. Approximately 10% of breast cancers are not detected with mammography. A negative mammographic report should not delay biopsy if a clinically suggestive mass is present. Renee Murphy M.D. ah/:01/26/2018 17:10:13 Mushroom Grower: [place] [facility]OS(Sena)(Kesha), [facility] letter sent: Normal 1/2 BI-RADS Code: ACR BI-RADS Category 2: Benign
== END | disposition home or self-care (01) ==
LOC: C.MAMM 14:51
PROVIDERS: ATTEND Obstetrics & Gynecology
DX: Z12.31 Encounter for screening mammogram for malignant neoplasm of breast (principal)